=== PATIENT | female | born 1955 | race Hispanic/Latino ===

== ENCOUNTER 2022-11-12 07:33 | Emergency (ER) | payer BC ==
[~2022-11-12] VITALS: Ht 154.9 cm; Wt 108.9 kg
[2022-11-12 08:31] LABS: BASOPHILS % (AUTO) 0.2 % (0.0-5.0); EOSINOPHILS % (AUTO) 0.1 % (0.0-8.0); HEMATOCRIT 48.7 % (36-48); LYMPHOCYTES % (AUTO) 11.8 % (21.0-51.0); MEAN CORPUSCULAR HEMOGLOBIN 28.8 pg (27.0-33.0); MEAN CORPUSCULAR HGB CONC 32.2 g/dL (32.0-36.0); MEAN CORPUSCULAR VOLUME 89.4 fL (79-99); MONOCYTES % (AUTO) 5.9 % (3.0-13.0); NEUTROPHILS % (AUTO) 81.5 % (40.0-77.0); PLATELET COUNT (AUTO) 228 K/uL (130-400); RED BLOOD CELL COUNT(AUTO) 5.45 MIL/uL (4.00-5.50); RED CELL DISTRIBUTION WIDTH 13.5 % (11.0-15.5); WHITE BLOOD COUNT (AUTO) 18.2 K/uL (4.8-10.8)
[2022-11-12 08:49] LABS: CREATININE 0.8 mg/dL (0.5-1.5); POTASSIUM 3.9 mmol/L (3.5-5.1)
[2022-11-12 08:50] LABS: ALBUMIN 3.8 g/dL (3.5-5.0); MAGNESIUM 2.1 mg/dL (1.80-2.40); TOTAL PROTEIN, SERUM 7.8 g/dL (6.0-8.3)
[2022-11-12] MEDS ORDERED: 0.9%NACL 1000ML 1,000 ML IV ONE ×2 (09:23→09:30)
[2022-11-12] MEDS ORDERED: ONDANSETRON 4MG INJ ONE (09:24)
[2022-11-12] MEDS ORDERED: ONDANSETRON 4MG INJ IVP ONE (09:30)
[2022-11-12 10:06] LABS: APPEARANCE,URINE CLOUDY (CLEAR); BILIRUBIN,URINE NEGATIVE (NEGATIVE); COLOR,URINE YELLOW (YELLOW); GLUCOSE, URINE (UA) NEGATIVE (NEGATIVE); KETONES,URINE NEGATIVE (NEGATIVE); LEUKOCYTE ESTERASE ,URINE NEGATIVE Leu/uL (NEGATIVE); NITRATE,URINE NEGATIVE (NEGATIVE); OCCULT BLOOD,URINE NEGATIVE (NEGATIVE); PROTEIN,URINE 30 mg/dL (NEGATIVE); UROBILINOGEN,URINE 0.2 mg/dL (0.2-1.0)
[2022-11-12 10:48] LABS: RBC,URINE 0-1 /HPF (0-1); WBC,URINE 0-1 /HPF (0-1)
[2022-11-12 10:49] LABS: BACTERIA,URINE Rare /HPF (None Seen)
[2022-11-12 10:50] LABS: AMORPHOUS SEDIMENT,UR Moderate /LPF (None Seen); SQUAMOUS EPITHELIAL CELL,UR 0-2 /HPF (0-2)
[2022-11-12] MEDS ORDERED: IOHEXOL 350 MG/ML 100ML INFUS..BTL IV ONE (11:52)
[2022-11-12] MEDS ORDERED: ONDA4TAB10 PO (12:26)
[2022-11-12 12:45] VITALS: BP 144/81
== END 2022-11-12 12:50 | disposition home or self-care (01) ==
LOC: EDH 07:33
DX: K52.9 Noninfective gastroenteritis and colitis, unspecified (principal); E86.0 Dehydration; M19.90 Unspecified osteoarthritis, unspecified site; E11.9 Type 2 diabetes mellitus without complications; Z90.49 Acquired absence of other specified parts of digestive tract; Z90.710 Acquired absence of both cervix and uterus
CPT/HCPCS: 99284; 74177; 96374; 96361; 83735; 84484; 80053; 83690; 85025; 81001; 36415; 93005; J7030; J2405; Q9967